=== PATIENT | female | born 1990 | race American Indian/Alaskan Native ===

== ENCOUNTER 2016-07-23 18:46 | Inpatient (IN) | payer MEDICAID ==
[2016-07-23] MEDS ORDERED: LACTATED RINGERS 1,000 ML ONE (19:31)
[2016-07-23] MEDS ORDERED: SUBLIMAZE ONE (19:40)
[2016-07-23] MEDS ORDERED: SUBLIMAZE IV ONE (19:44)
--- NOTE | 2016-07-23 19:56 | Anesthesia Consultation ---
Anesthesia Consult and Med Hx Date of service: 07/23/16 - Airway Anesthetic Teeth Evaluation: Good ROM Head & Neck: Adequate Mental/Hyoid Distance: Adequate Mallampati Class: Class II Intubation Access Assessment: Good - Pulmonary Exam CTA: Yes - Cardiac Exam Cardiac Exam: No Murmur - Pre-Operative Health Status ASA Pre-Surgery Classification: ASA2 Proposed Anesthetic Plan: Epidural
[2016-07-23] MEDS ORDERED: ePHEDrine SULFATE IV PRN ×2 (19:57→20:47)
[2016-07-23] MEDS ORDERED: NARCAN 2 MG/2 ML IV PRN (19:57)
[2016-07-23] MEDS ORDERED: fentaNYL-BUPIV 2 MCG/ML-0.125% 100 ML EPIDURAL SCH (20:00)
[2016-07-23] MEDS ORDERED: LACTATED RINGERS 1,000 ML IV SCH ×2 (20:00→21:00)
[2016-07-23 20:20] LABS: Hematocrit 40.5 % (30.3-42.9); Hemoglobin 13.4 gm/dl (10.1-14.3); Mean Corpuscular HGB Conc 33 % (30-34); Mean Corpuscular Hemoglobin 29 pg (28-32); Mean Corpuscular Volume 87 fl (79-97); Red Blood Count 4.64 M/mm3 (3.65-5.03); Red Cell Distribution Width 16.4 % (13.2-15.2); White Blood Count 8.7 K/mm3 (4.5-11.0)
[2016-07-23] MEDS ORDERED: ePHEDrine SULFATE ONE (20:34)
[2016-07-23] MEDS ORDERED: BRETHINE IVP PRN (20:47)
[2016-07-23] MEDS ORDERED: MINERAL OIL PO PRN (20:47)
[2016-07-23] MEDS ORDERED: ZOFRAN IV PRN ×2 (20:47→22:29)
[2016-07-23] MEDS ORDERED: BRETHINE SUB-Q PRN (20:47)
--- NOTE | 2016-07-23 20:47 | History and Physical Report ---
History of Present Illness Date of examination: 07/23/16 Date of admission: 07/23/16 19:30 Past History Past Medical History: no pertinent history Past Surgical History: no surgical history Family/Genetic History: none Social history: no significant social history, single - Obstetrical History Expected Date of Delivery: 07/22/16 Actual Gestation: 40 Week(s) 1 Day(s) : 2 Para: 1 Number of Living Children: 1 Medications and Allergies Allergies Allergy/AdvReac Type Severity Reaction Status Date / Time No Known Allergies Allergy Unverified 07/23/16 19:37 Active Meds: Active Medications Lactated Ringer's (Lactated Ringers) 1,000 mls @ 125 mls/hr IV DIRECT KAMRYN Last Admin: 07/23/16 20:05 Dose: 125 mls/hr Fentanyl/Bupivacaine/Sodium Chlor (Fentanyl-Bupiv 2 Mcg/Ml-0.125%) 100 mls @ 12 mls/hr EPIDURAL TITR KAMRYN PRN Reason: Protocol Review of Systems All systems: negative - Vital Signs Vital signs: Vital Signs Pulse Pulse Ox 187 H 82 L 07/23/16 18:59 07/23/16 18:59 Temp Pulse Resp BP Pulse Ox 98.8 F 81 18 129/69 97 07/23/16 19:57 07/23/16 19:57 07/23/16 20:03 07/23/16 19:57 07/23/16 19:57 - Physical Exam Breasts: Positive: normal Cardiovascular: Regular rate Lungs: Positive: Clear to auscultation Abdomen: Positive: normal appearance Genitourinary (Female): Positive: other (VE by RN O/A; deferred for now until pt gets epidural placed) Extremities: Deep Tendon Reflex Grade: Normal +2 - Obstetrical FHR: auscultation normal Results Result Diagrams: 07/23/16 19:20 Abnormal lab results 07/23/16 Range/Units 19:20 RDW 16.4 H (13.2-15.2) % All other labs normal. Assessment and Plan A. 25 y/o admitted in active labor S/P SROM at 18:00 this evening -pt reports mec staining in fluid record not availabile: pt denies pg complications or sign PMHx. States GBS was neg Requesting epidural P Routine admission, labs, VS Epidural Anticipate .
[2016-07-23] MEDS ORDERED: PITOCin/NS 20 UNIT/1000ML DRIP 1,000 ML IV SCH (21:00)
[2016-07-23 22:00] LABS: Platelet Count 146 K/mm3 (140-440)
--- NOTE | 2016-07-23 22:26 | Procedure Note ---
OB Delivery Note - Delivery Date of Delivery: 07/23/16 (@ 22:06) Surgeon: HANY RESTREPO Estimated blood loss: 100cc - Vaginal Delivery position: OA Intrapartum events: none Delivery induction: none Delivery monitor: external FHT Route of delivery: (Thick mec noted prior to del. NICU team present for del. ) Delivery placenta: spontaneous Delivery cord: nuchal cord (Tight cord around the neck and looped around the shoulder) Episiotomy: none Delivery laceration: none - A at 1 minute: 8 at 5 minutes: 9 Gender: Female (D/T thick mec and tight nuchal cord as infant delivered, cord C&C right away and to warmer for pedi assessment. Infant had initial cry on the way to the warmer and was vigorous during assessment. Cord released as baby delivered from neck and the looped around the shoulders. 3601 gm/7lb8oz. Pt plans to breast feed.)
[2016-07-23] MEDS ORDERED: TYLENOL PO PRN (22:29)
[2016-07-23] MEDS ORDERED: DERMOPLAST TP PRN (22:29)
[2016-07-23] MEDS ORDERED: MILK OF MAGNESIA PO PRN (22:29)
[2016-07-23] MEDS ORDERED: TUCKS PAD TP PRN (22:29)
[2016-07-23] MEDS ORDERED: LANSINOH TP PRN (22:29)
[2016-07-23] MEDS ORDERED: DULCOLAX PR PRN (22:29)
[2016-07-23] MEDS ORDERED: SODIUM CHLORIDE FLUSH SYRINGE 10 ML IV PRN (23:00)
[2016-07-24] MEDS: MOTRIN PO SCH ×4 (01:46→18:13)
[2016-07-24] MEDS: NORCO 5/325 PO PRN ×2 (01:47→02:10)
--- NOTE | 2016-07-24 08:46 | Progress Note ---
Assessment and Plan A. PP Day # 1, normal course Plans BTL for BC and has signed consent PP anemia P Continue pp care today and DC in AM Fe daily Pt to f/u in 4 wk at clinic for surgery scheduling Subjective - Subjective Date of service: 07/24/16 (PP Day # 1: S/P ) Patient reports: appetite normal, pain well controlled, ambulating normally : doing well, nursing well Objective - Vital Signs Latest vital signs: Vital Signs Temp Pulse Pulse Resp BP BP Pulse Ox 07/24/16 04:10 98.6 F 74 22 116/51 07/24/16 01:47 18 07/24/16 01:46 18 07/24/16 01:00 99.1 F 79 20 115/70 07/24/16 00:11 74 132/70 07/23/16 23:56 69 129/60 07/23/16 23:42 76 128/60 07/23/16 23:27 77 143/69 07/23/16 23:11 82 130/59 07/23/16 22:57 18 126/58 07/23/16 22:56 85 126/58 07/23/16 22:42 113 H 134/67 07/23/16 22:33 86 90 07/23/16 22:30 94 H 91 07/23/16 22:28 87 100 07/23/16 22:27 88 141/63 07/23/16 22:23 92 H 188/96 95 07/23/16 22:21 93 H 88 07/23/16 22:18 82 121/62 84 07/23/16 22:14 82 93 07/23/16 22:13 79 100 07/23/16 22:12 179 H 108/62 07/23/16 22:08 74 112/51 100 07/23/16 22:03 82 131/58 97 07/23/16 21:58 105 H 100 07/23/16 21:57 96 H 121/62 07/23/16 21:53 120 H 100 07/23/16 21:48 126 H 94 07/23/16 21:43 99 H 100 07/23/16 21:42 196 H 111/68 07/23/16 21:40 88 106/69 07/23/16 21:38 94 H 100 07/23/16 21:37 81 111/52 07/23/16 21:36 82 113/56 07/23/16 21:33 95 H 105/57 100 07/23/16 21:31 94 H 101/57 07/23/16 21:29 87 113/57 07/23/16 21:28 76 100 07/23/16 21:27 67 114/57 07/23/16 21:25 63 117/60 07/23/16 21:23 71 127/67 96 07/23/16 21:21 71 130/66 07/23/16 21:19 82 140/71 07/23/16 21:18 73 140/74 07/23/16 21:17 74 98 07/23/16 21:15 83 140/75 07/23/16 21:14 99 H 143/74 07/23/16 21:12 64 94 07/23/16 21:05 85 99 07/23/16 21:00 85 98 07/23/16 20:55 75 98 07/23/16 20:03 18 07/23/16 19:57 98.8 F 81 18 129/69 97 07/23/16 19:15 287 H 82 L 07/23/16 19:12 259 H 82 L 07/23/16 19:11 259 H 82 L 07/23/16 18:59 187 H 82 L Intake and Output 07/23/16 07/24/16 07/24/16 22:59 06:59 14:59 Other: Weight 71.214 kg Estimated Blood Loss 100 - Exam Breasts: Present: normal Cardiovascular: Present: Regular rate Lungs: Present: Clear to auscultation Abdomen: Present: normal appearance Uterus: Present: normal, firm Extremities: Present: normal Incision: Present: dry, intact, other - Labs Labs: Abnormal lab results 07/23/16 Range/Units 19:20 RDW 16.4 H (13.2-15.2) %
--- NOTE | 2016-07-24 08:50 | Discharge Summary ---
Providers - Providers Date of Admission: 07/23/16 19:30 Date of discharge: 07/25/16 Attending physician: ALHAJI SHEPHERD MD Primary care physician: ALHAJI SHEPHERD MD Hospitalization Delivery: Episiotomy: none Laceration: none Other procedures: none complications: none Discharge diagnosis: IUP at term delivered baby: female Condition at discharge: Good Disposition: DISCHARGED TO HOME OR SELFCARE Plan - Provider Discharge Summary Activity: no sex for 6 weeks, no heavy lifting 4 weeks, no strenuous exercise Diet: routine Instructions: routine Additional instructions: [] Smoking cessation referral if applicable(refer to patient education folder for contact #) [] Refer to [facility]'s [facility] Booklet Call your doctor immediately for: * Fever > 100.5 * Heavy vaginal bleeding ( >1 pad per hour) * Severe persistent headache * Shortness of breath * Reddened, hot, painful area to leg or breast * Drainage or odor from incision. * Keep incision clean and dry at all times and follow doctor's instructions regarding bathing/showering - Follow up plan Follow up: ALHAJI ANDRES MD [Primary Care Provider] - HANY RESTREPO CNM [Advanced Practice Nurse] - 08/24/16
[2016-07-24] MEDS ORDERED: PRENATAL VITAMIN PO SCH (10:00)
[2016-07-24 10:25] LABS: Hematocrit 35.9 % (30.3-42.9); Hemoglobin 11.9 gm/dl (10.1-14.3)
[2016-07-25] MEDS: MOTRIN PO SCH ×2 (00:18→05:36)
[2016-07-25] MEDS ORDERED: BOOSTRIX IM ONE (06:00)
[2016-07-25 17:11] VITALS: BP 113/56
== END 2016-07-25 13:00 | disposition home or self-care (01) | DRG 775 ==
LOC: TRG 18:46 → LD 19:30 → OB 07-24 01:34
PROVIDERS: ADMIT Obstetrics & Gynecology; ATTEND Obstetrics & Gynecology
PROC: 10E0XZZ Delivery of Products of Conception, External Approach (ICD-10-PCS; principal; 2016-07-23)
PROC: 3E0S3CZ (ICD-10-PCS; 2016-07-23)
PROC: 00HU33Z Insertion of Infusion Device into Spinal Canal, Percutaneous Approach (ICD-10-PCS; 2016-07-23)
DX: O77.0 Labor and delivery complicated by meconium in amniotic fluid (principal); O69.1XX0 Labor and delivery complicated by cord around neck, with compression, not applicable or unspecified; O90.81 Anemia of the puerperium; D64.9 Anemia, unspecified; Z3A.40 40 weeks gestation of pregnancy; Z37.0 Single live birth
CPT/HCPCS: 36415; 85014; 85018; 85027; 86850; 86900; 86901; 90471; 90715; 99211; A6250; G0463; J2590; J3010; J7120